=== PATIENT | male | born 2005 ===

== ENCOUNTER 2024-01-13 22:02 | Emergency (ER) | payer BC, SELFPAY ==
[2024-01-13] MEDS ORDERED: NA CHLORIDE 0.9% 1,000 ML ONE (22:30)
[2024-01-13 22:39] LABS: Absolute Basophils 0.1 K/uL (0-0.5); Absolute Eosinophils 0.5 K/uL (0-0.5); Absolute Lymphocytes (CBC) 1.7 K/uL (0.7-4.9); Absolute Monocytes 0.3 K/uL (0.1-1.3); Absolute Neutrophil 3.8 K/uL (1.8-8.0); Basophils % 0.9 % (0-1.3); Eosinophils % 7.4 % (0-4.4); Hematocrit 37.5 % (39.6-49.0); Hemoglobin 13.1 g/dL (13.6-17.9); Lymphocytes % 26.7 % (15.3-44.8); MCH 30.7 pg (27.0-35.0); MCV 87.5 fL (80-100); MPV 7.4 fL (7.6-11.3); Monocytes % 5.3 % (3.3-12.3); Neutrophils % 59.7 % (41.7-73.7); Platelets 185 thou/uL (152-406); RBC Red Blood Cell Count 4.29 M/uL (4.33-5.43); Red Cell Distribution Width 12.9 % (12.1-15.2)
[2024-01-13 23:10] LABS: Albumin 3.6 g/dL (3.4-5.0); Albumin/Globulin Ratio 1.3 (1.1-1.8); Anion Gap 12.9 mEq/L (5.0-15.0); Bilirubin Total 0.5 mg/dL (0.2-1.0); Globulin 2.8 g/dL (2.3-3.5); Magnesium 1.8 mg/dL (1.6-2.4); Potassium 2.9 mEq/L (3.5-5.1); Protein, Total 6.4 g/dL (6.4-8.2)
--- NOTE | 2024-01-14 01:29 | EDPHYS ---
Physician Documentation [facility] Name: Shimon Bourgeois Age: 18 yrs Sex: Male : 2005 Arrival Date: 01/13/2024 Time: 22:02 Bed 6 Private MD: ED Physician Martin Ye HPI: 01/12 22:51 This 18 yrs old Male presents to ER via EMS with complaints of Altered Mental Status. rt 22:51 History limited due to patient with intoxication, was reportedly found in the back of rt the pickup truck, no reported signs of trauma. Patient was reportedly consuming a large amount of alcohol. No further history could be obtained per patient. Symptoms are moderate in severity, no other aggravating or alleviating factors.. Historical: - Allergies: 22:18 No Known Allergies; jj7 - PMHx: 22:18 None; jj7 - PSHx: 22:18 None; jj7 - Immunization history:: Adult Immunizations unknown. - Infectious Disease History:: Denies. - Social history:: Smoking status: Reported history of juuling and/or vaping. Patient uses alcohol, occasionally. Patient/guardian denies using street drugs, IV drugs. - Family history:: not pertinent. ROS: 22:51 Unable to obtain ROS due to Intoxicated, rt Exam: 22:51 Head/Face: Normocephalic, atraumatic. Chest/axilla: Normal chest wall appearance and rt motion. Nontender with no deformity. No lesions are appreciated. Cardiovascular: Regular rate and rhythm with a normal S1 and S2. No gallops, murmurs, or rubs. Normal PMI, no JVD. No pulse deficits. Respiratory: Lungs have equal breath sounds bilaterally, clear to auscultation and percussion. No rales, rhonchi or wheezes noted. No increased work of breathing, no retractions or nasal flaring. Abdomen/GI: Soft, non-tender, with normal bowel sounds. No distension or tympany. No guarding or rebound. No evidence of tenderness throughout. Skin: Warm, dry with normal turgor. Normal color with no rashes, no lesions, and no evidence of cellulitis. 22:51 Neuro: Responds with obscene gestures to questions, speaks in 1-2 word sentences, slurred speech, moves all 4 extremities equally, Vital Signs: 22:14 BP 100 / 49; Pulse 88; Resp 16; Temp 96.9; Pulse Ox 98% on R/A; Weight 67 kg; jj7 23:00 BP 95 / 53; Pulse 84; Resp 17; Pulse Ox 98% ; jj7 01/13 00:00 BP 102 / 44; Pulse 95; Resp 18; Pulse Ox 98% ; jj7 00:55 BP 134 / 82; Pulse 93; Resp 18; Pulse Ox 98% ; jj7 MDM: 01/12 22:09 Patient medically screened. rt 01/13 02:13 Differential Diagnosis: Intracranial hemorrhage, alcohol intoxication, electrolyte rt disturbance. Data reviewed: vital signs, nurses notes, lab test result(s), radiologic studies. I considered the following discharge prescriptions or medication management in the emergency department Medications were administered in the Emergency Department. See MAR. Independent interpretation of the following test(s) in the Emergency Department CT Scan: My interpretation is No intracranial hemorrhage seen on my interpretation of CT scan images. Care significantly affected by the following Social Determinants of Health: Misuse of alcohol and/or drugs. Response to treatment: the patient's symptoms have markedly improved after treatment. ED course: Patient became aggressive in the emergency department. Code colin was called, PD was called, they were able to calm the patient down. Once patient CT scan came back and was negative, no further medical interventions were indicated, was ambulatory without difficulty. Law enforcement stated that the patient does not seem to be an imminent threat to himself or to his fiance.. 01/12 22:10 Order name: CBC with Diff; Complete Time: 23:11 rt 01/12 22:10 Order name: CMP; Complete Time: 23:11 rt 01/12 22:10 Order name: Magnesium; Complete Time: 23:11 rt 01/12 22:10 Order name: ETOH Level; Complete Time: 23:11 rt 01/13 00:07 Order name: CT Head C Spine rt Administered Medications: 01/12 22:32 Drug: NS 0.9% IV 1000 ml IV at 1 bolus Per protocol; 1000 mL bolus Route: IV; Rate: 1 jj7 bolus; Site: left upper arm; 23:30 Follow up: IV Status: Completed infusion jj7 Disposition Summary: 01/14/24 01:29 Discharge Ordered Notes: Location: Home rt Problem: new rt Symptoms: have improved rt Condition: Stable rt Diagnosis - Alcohol abuse with intoxication rt Followup: rt - With: Private Physician - When: 2 - 3 days - Reason: Discharge Instructions: - Discharge Summary Sheet rt - Alcohol Intoxication rt Forms: - Medication Reconciliation Form rt - Antibiotic Education rt - Prescription Opioid Use rt - Patient Portal Instructions rt - Leadership Thank You Letter rt Signatures: Dispatcher [employer] Aura Deng RN RN jj7 Martin Ye MD MD rt Corrections: (The following items were deleted from the chart) 22:10 22:10 CBC+H.LAB.BRZ ordered. EDMS EDMS 22:10 22:10 COMPREHENSIVE METABOLIC PANEL+C.LAB.BRZ ordered. EDMS EDMS 22:10 22:10 MAGNESIUM+C.LAB.BRZ ordered. EDMS EDMS 22:10 22:10 ETHANOL+C.LAB.BRZ ordered. EDMS EDMS
--- NOTE | 2024-01-14 01:29 | ER ---
Nurse's Notes [facility] Name: Shimon Bourgeois Age: 18 yrs Sex: Male : 2005 Arrival Date: 01/13/2024 Time: 22:02 Bed 6 Private MD: Diagnosis: Alcohol abuse with intoxication Presentation: 01/12 22:14 Chief complaint: Spouse and/or significant other states: STATES HE WAS DROPPED OFF AT [facility] HER FAMILY FUNCTION LIKE THIS. SHE BELIEVES HE IS INTOXICATED EMS states: WAS CALLED OUT TO A LIBERTARIAN MIN BY PD FOR PT. PT WAS FOUND PASSED OUT IN THE BACK OF A PICKUP TRUCK. VOMITING AND COMBATIVE WITH EMS. Coronavirus screen: At this time, the client does not indicate any symptoms associated with coronavirus-19. Ebola Screen: No symptoms or risks identified at this time. Initial Sepsis Screen: Does the patient meet any 2 criteria? No. Patient's initial sepsis screen is negative. Does the patient have a suspected source of infection? No. Patient's initial sepsis screen is negative. Risk Assessment: Do you want to hurt yourself or someone else? Unable to obtain. Onset of symptoms was January 13, 2024. 22:14 Method Of Arrival: EMS: [facility] 22:14 Acuity: SARAH 3 jj7 Triage Assessment: 22:18 General: Appears uncomfortable, Behavior is inappropriate for age, unresponsive. Pain: j Unable to use pain scale. Patient is disoriented. Neuro: Level of Consciousness is lethargic, Oriented to PT NOT ANSWERING ANY QUESTIONS. FLIPPING US OFF AND SMILING. Historical: - Allergies: 22:18 No Known Allergies; jj7 - PMHx: 22:18 None; jj7 - PSHx: 22:18 None; jj7 - Immunization history:: Adult Immunizations unknown. - Infectious Disease History:: Denies. - Social history:: Smoking status: Reported history of juuling and/or vaping. Patient uses alcohol, occasionally. Patient/guardian denies using street drugs, IV drugs. - Family history:: not pertinent. Screenin:14 [facility] ED Fall Risk Assessment (Adult) History of falling in the last 3 months, j7 including since admission No falls in past 3 months (0 pts) Confusion or Disorientation Yes (5 pts) Intoxicated or Sedated No (0 pts) Impaired Gait No (0 pts) Mobility Assist Device Used No (0 pt) Altered Elimination No (0 pt) Score/Fall Risk Level 3 or more points = High Risk Oriented to surroundings, Maintained a safe environment, Educated pt \T\ family on fall prevention, incl call for assistance when getting out of bed, Assessed \T\ reinforced patient's understanding of fall precautions. Abuse screen: Denies threats or abuse. Nutritional screening: No deficits noted. Tuberculosis screening: No symptoms or risk factors identified. Assessment: 22:14 Reassessment: SEE TRIAGE ASSESSSMENT. j 01/13 00:56 Reassessment: Patient is alert, oriented x 3, equal unlabored respirations, skin j7 warm/dry/pink. Neuro: Level of Consciousness is awake, alert, obeys commands, Oriented to person, place, situation, Gait is unsteady. 01:07 Reassessment: PT CRYING AND HITTING THINGS. PT BEING COMBATIVE AND STORMING OUT THE [facility] ROOM. CODE IRWIN CALLED. SECURITY AT BEDSIDE WITH PT. 01:19 Reassessment: HORACIO HORAN AT BEDSIDE. [facility] Vital Signs: 01/12 22:14 BP 100 / 49; Pulse 88; Resp 16; Temp 96.9; Pulse Ox 98% on R/A; Weight 67 kg; j7 23:00 BP 95 / 53; Pulse 84; Resp 17; Pulse Ox 98% ; jj7 01/13 00:00 BP 102 / 44; Pulse 95; Resp 18; Pulse Ox 98% ; jj7 00:55 BP 134 / 82; Pulse 93; Resp 18; Pulse Ox 98% ; j7 ED Course: 01/12 22:09 Patient arrived in ED. kmf 22:09 Martin Ye MD is Attending Physician. rt 22:14 Patient has correct armband on for positive identification. Bed in low position. Call j light in reach. Side rails up X2. Adult w/ patient. Warm blanket given. 22:14 Maintain EMS IV. Dressing intact. Good blood return noted. Site clean \T\ dry. Gauge \T\ jj 7 site: 18G LEFT UPPER ARM. 22:18 Triage completed. j7 22:18 Arm band placed on right wrist. Patient placed in an exam room, on a stretcher. jj7 22:32 Aura Rose, RN is Primary Nurse. jj7 22:32 ETOH Level Sent. jj7 22:32 Magnesium Sent. jj7 22:32 CMP Sent. jj7 22:32 CBC with Diff Sent. jj7 01/13 00:52 CT Head C Spine In Process Unspecified. EDMS 01:32 No provider procedures requiring assistance completed. IV discontinued, intact, jj7 bleeding controlled, No redness/swelling at site. Pressure dressing applied. Administered Medications: 01/12 22:32 Drug: NS 0.9% IV 1000 ml IV at 1 bolus Per protocol; 1000 mL bolus Route: IV; Rate: 1 jj7 bolus; Site: left upper arm; 23:30 Follow up: IV Status: Completed infusion j7 Medication: :14 VIS not applicable for this client. jj7 Outcome: 01/13 01:29 Discharge ordered by . rt 01:32 Discharged to Law Enforcement jj7 01:32 Condition: good 01:32 Discharge instructions given to patient, police, Instructed on discharge instructions, Demonstrated understanding of instructions, 01:35 Patient left the ED. jj7 Signatures: Dispatcher [employer] EDMS Aura Rose RN RN jj7 Martin Ye MD MD rt Sussy [facility]
[2024-01-14 01:41] VITALS: TEMP 96.9; O2SAT 98
[2024-01-14 01:45] VITALS: BP 134/82
--- NOTE | 2024-01-15 14:04 | RAD REPORT ---
CT HEAD AND CERVICAL SPINE WITHOUT CONTRAST INDICATION: Trauma. COMPARISON: None TECHNIQUE: CT images of the head and cervical spine were obtained without contrast. Multiplanar refor mats were provided. Dose lowering techniques such as automated exposure control, iterative reconstruction, and mA and/or kV adjustment for patient size was utilized for this examination. FINDINGS: CT HEAD: PARENCHYMA: No acute arterial territory infarct or hemorrhage. Tadeo-white matter differentiation is p reserved. No mass effect or midline shift. VENTRICLES: Normal in size for patient's age. EXTRA-AXIAL: Incidental finding of leyda cisternal magna. Patent basilar cisterns. ORBITS: Unremarkable. BONES: No acute finding. PARANASAL SINUSES: Near complete opacification of ethmoid air cells and frontal sinuses. Small amount of layering fluid in left maxillary sinus. Trace mucosal thickening in right maxillary sinus and bilateral sphenoid sinuses. MASTOIDS/MIDDLE EARS: Clear. SOFT TISSUES: No acute findings. OTHER: None. CT CERVICAL SPINE: Examination is degraded by excessive patient's motion. ALIGNMENT: Straightening of the normal cervical lordosis, which can be on the basis of muscular spasm or positioning. No spondylolisthesis. BONES: Apparent cortical discontinuity at C5 vertebra, is likely related to motion artifact. No defin ite acute fractures. No compression deformity. SOFT TISSUES: Unremarkable. LUNG APICES: Clear. OTHER: None. IMPRESSION: 1. No acute intracranial abnormality. 2. No definite acute traumatic injury of cervical spine, within the limitation of motion artifact. 3. Paranasal sinus disease, most prominent in ethmoid, frontal and left maxillary sinuses. Electronically signed by: Kori Lane MD 01/14/2024 01:21 AM CDT Transcribed Date/Time: 01/15/2024 2:03 PM
== END 2024-01-14 01:35 | disposition home or self-care (01) ==
LOC: ER 22:02
DX: F10.129 Alcohol abuse with intoxication, unspecified (principal)
CPT/HCPCS: 36415; 70450; 72125; 80053; 82077; 83735; 85025; 96360; 99284; J7030